=== PATIENT | female | born 1995 | race African-American/Black ===

== ENCOUNTER 2016-09-19 01:28 | Emergency (ER) | payer MEDICAID ==
[~2016-09-19] VITALS: Ht 160 cm; Wt 75.0 kg
[~2016-09-19 01:28] MED LIST: ALBU1AER INH; IBUP600 PO; OXYC1SOL5 PO; PERI8.6T PO; PREN0.01 PO
[2016-09-19 01:31] VITALS: BP 130/78; PULSE 77; RESP 16; TEMP 98; O2SAT 99
[2016-09-19] MEDS ORDERED: SODIUM CHLOR 0.9% 1000 ML INJ 1,000 ML IV ONE (01:54)
[2016-09-19] MEDS ORDERED: KETOROLAC TROMETHAMINE 30 MG/ML (IVP) VIAL IV PUSH ONE (02:00)
--- NOTE | 2016-09-19 02:19 | PD ---
HPI Chief Complaint: Abdominal Pain Time Seen by Provider: 01:52 Travel History International Travel<30 days: No Contact w/Intl Traveler<30days: No Traveled to known affect area: No History of Present Illness HPI The patient is a 21 year old female who presents to the [facility] emergency department with a history of vaginal discharge and vaginal pain that she reports began 2 weeks ago. She reports that the vaginal discharge is white to yellow in color. She reports that it has a bad odor. She reports that she occasionally has had vaginal itching. She denies having any open wounds. She denies having any new sexual partners or concerns about sexually transmitted infections. She reports that her last mental cycle was September 10, 2016. The patient denies any recent fevers, cough, congestion, neck pain, chest pain, shortness of breath, abdominal pain, vomiting, diarrhea, urinary symptoms, or neurologic symptoms. PFSH Past Medical History Narrative Medical The patient's past medical history is significant for asthma. Asthma: Yes Diminished Hearing: No Respiratory: Yes (ASTHMA) Immunizations Current: Yes Tetanus Vaccination: > 5 Years Influenza Vaccination: No ?: Not LMP: 1-17 Menopausal: No : 2 Para: 2 Miscarriage: 0 : 0 Past Surgical History Narrative Surgical The patient's past surgical history is reportedly none. Surgical History: No Previous Surgery Section: Yes (2) Gynecologic Surgery: Yes (C SECTION) Social History Alcohol Use: No Tobacco Use: No Substance Use: No Allergies-Medications (Allergen,Severity, Reaction): Coded Allergies: No Known Allergies (Verified , 09/19/16) Reported Meds & Prescriptions Reported Meds & Active Scripts Active Kaley-Colace 8.6-50 mg (Sennosides-Docusate Sodium) 1 Tab Tab 2 Tab PO Q12HR PRN Oxycodone/Acetaminophen 5 mg/325 mg 5 mg/325 mg Tab 1 Tab PO Q4H PRN Motrin 600 Mg Tab (Ibuprofen) 600 Mg Tab 600 Mg PO Q6H PRN Proair Hfa (Albuterol Sulfate) 8.5 Gm Aero 2 Puff INH Q4HR PRN * SHAKE WELL BEFORE USE * Reported Vit ( Plus) (Prenat Multivit/Grill Attendant/Iron/Folic Ac) Tab 1 Tab PO DAILY Review of Systems Except as stated in HPI: all other systems reviewed are Neg General / Constitutional: No: Fever Eyes: No: Visual changes HENT: No: Headaches Cardiovascular: No: Chest Pain or Discomfort Respiratory: No: Shortness of Breath Gastrointestinal: No: Abdominal Pain Genitourinary: Positive: Pelvic Pain, Discharge, No: Urgency, Frequency, Dysuria, Vaginal Bleeding Musculoskeletal: No: Pain Skin: No Rash Neurologic: No: Weakness Psychiatric: No: Depression Endocrine: No: Polydipsia Hematologic/Lymphatic: No: Easy Bruising Physical Exam Narrative General: The patient is a well-developed well-nourished female in no acute distress. Head and Neck exam: Head is normocephalic atraumatic. Eyes: Pupils are equal round and reactive to light. Nose: Midline septum with pink mucous membranes Mouth: Dentition unremarkable. Moist mucus membranes. Posterior oropharynx is not erythematous. No tonsillar hypertrophy. Uvula midline. Airway patent. Neck: No palpable lymphadenopathy. No nuchal rigidity. No thyromegaly. Cardiovascular: Regular rate and rhythm without murmurs, gallops, or rubs. No pulse deficit to the extremities. Lungs: Clear to auscultation bilaterally. No wheezes, rhonchi, or rales. Abdomen: Soft, with tenderness on palpation in the left lower quadrant of the abdomen. No other tenderness on palpation of the other 3 quadrants. The patient has mild suprapubic tenderness on palpation. No guarding, rebound, or rigidity. Normal bowel sounds are audible. No tenderness on palpation of McBurney's point. Extremities: No clubbing, cyanosis, or edema. 2+ pulses in all 4 extremities. Back: No spinous process tenderness to palpation. Left-sided CVA tenderness on palpation. Neurologic Exam: Grossly nonfocal. Skin Exam: No rash noted. Intact skin that is warm and dry. Gynecologic exam: The patient was placed in the dorsal lithotomy position. Her external genitalia were examined. She had no evidence of rash or lesions. The speculum was placed into her vagina and the cervix was identified. She had a thin white to yellow frothy discharge. No cervical friability. On Bimanual exam: she has cervical motion tenderness. She has bladder tenderness on palpation on bimanual examination. No adnexal tenderness or prominence noted on palpation. No uterine tenderness or enlargement noted on palpation. Data Data Last Documented VS Vital Signs Date Time Temp Pulse Resp B/P Pulse Ox O2 Delivery O2 Flow Rate FiO2 09/19/16 01:45 20 09/19/16 01:31 98.0 77 130/78 99 Orders Complete Blood Count With Diff (09/19/16 01:54) Comprehensive Metabolic Panel (09/19/16 01:54) Wet Prep Profile (09/19/16 01:54) Urinalysis - C+S If Indicated (09/19/16 01:54) Iv Access Insert/Monitor (09/19/16 01:54) Ecg Monitoring (09/19/16 01:54) Sodium Chlor 0.9% 1000 Ml Inj (Ns 1000 M (09/19/16 01:54) Ed Urine Pregnancytest Poc (09/19/16 01:54) Ketorolac Inj (Toradol Inj) (09/19/16 02:00) Ceftriaxone Inj (Rocephin Inj) (09/19/16 03:45) Azithromycin Powd Pack (Zithromax Powd P (09/19/16 03:45) Gc And Chlamydia Pcr (09/19/16 04:05) Labs Laboratory Tests Test 09/19/16 09/19/16 02:15 03:15 White Blood Count 10.5 TH/MM3 Red Blood Count 4.32 MIL/MM3 Hemoglobin 10.9 GM/DL Hematocrit 33.3 % Mean Corpuscular Volume 77.0 FL Mean Corpuscular Hemoglobin 25.2 PG Mean Corpuscular Hemoglobin 32.7 % Concent Red Cell Distribution Width 14.6 % Platelet Count 203 TH/MM3 Mean Platelet Volume 10.6 FL Neutrophils (%) (Auto) 61.7 % Lymphocytes (%) (Auto) 27.7 % Monocytes (%) (Auto) 7.9 % Eosinophils (%) (Auto) 2.0 % Basophils (%) (Auto) 0.7 % Neutrophils # (Auto) 6.4 TH/MM3 Lymphocytes # (Auto) 2.9 TH/MM3 Monocytes # (Auto) 0.8 TH/MM3 Eosinophils # (Auto) 0.2 TH/MM3 Basophils # (Auto) 0.1 TH/MM3 CBC Comment DIFF FINAL Differential Comment Urine Color YELLOW Urine Turbidity HAZY Urine pH 6.0 Urine Specific [place] 1.033 Urine Protein TRACE mg/dL Urine Glucose (UA) NEG mg/dL Urine Ketones NEG mg/dL Urine Occult Blood NEG Urine Nitrite NEG Urine Bilirubin NEG Urine Urobilinogen LESS THAN 2.0 MG/DL Urine Leukocyte Esterase SMALL Urine RBC LESS THAN 1 /hpf Urine WBC 1 /hpf Urine Squamous Epithelial 5 /hpf Cells Urine Mucus FEW /lpf Microscopic Urinalysis Comment CULT NOT INDICATED Sodium Level 139 MEQ/L Potassium Level 4.2 MEQ/L Chloride Level 106 MEQ/L Carbon Dioxide Level 26.0 MEQ/L Anion Gap 7 MEQ/L Blood Urea Nitrogen 19 MG/DL Creatinine 0.61 MG/DL Estimat Glomerular Filtration 148 ML/MIN Rate Random Glucose 93 MG/DL Calcium Level 8.8 MG/DL Total Bilirubin 0.2 MG/DL Aspartate Amino Transf 16 U/L (AST/SGOT) Alanine Aminotransferase 18 U/L (ALT/SGPT) Alkaline Phosphatase 89 U/L Total Protein 7.7 GM/DL Albumin 3.8 GM/DL Clue Cells (Wet Prep) PRESENT Vaginal Trichomonas (Wet Prep) NONE SEEN Vaginal Yeast (Wet Prep) NONE SEEN MDM Medical Decision Making Medical Screen Exam Complete: Yes Emergency Medical Condition: Yes Medical Record Reviewed: Yes Differential Diagnosis Bacterial vaginosis, versus cervicitis, versus yeast vaginitis, versus trichomoniasis, urinary tract infection Narrative Course During the course of the patients emergency department visit, the patients history, examination, and differential diagnosis were reviewed with the patient. The patient had IV access obtained and blood work sent for analysis. A pelvic examination will be done. A bedside test was negative. The patient was provided Toradol for pain, Zofran for nausea, normal saline IV fluids were administered. The patients laboratory studies were reviewed and remarkable for a white count of 10.5, hemoglobin 10.9, platelets 203 with a normal differential, CMP is remarkable for BUN of 19, urinalysis shows small leukocyte esterase, otherwise unremarkable, culture not indicated, wet prep is positive for clue cells. The patient's results were discussed with her. The patient was given Rocephin 1 g IV, azithromycin 1 g by mouth 1. The patient will be discharged home with a prescription for Flagyl. The patient is resting comfortably and feels better, is alert and in no distress. The patients results and examination findings were discussed with the patient. The repeat examination is unremarkable and benign. The history, exam, diagnostic testing, and current condition do not suggest any significant pathology to warrant further testing, continued ED treatment, admission, or surgical evaluation at this point. The vital signs have been stable. The patient does not have uncontrollable pain, intractable vomiting, or other significant symptoms. The patient's condition is stable and appropriate for discharge. The patient will pursue further outpatient evaluation with a primary care physician or other designated or consulting physician as indicated in the discharge instructions. The patient expressed understanding and was agreeable with this plan. Diagnosis Primary Impression: Cervicitis Additional Impression: Bacterial vaginosis Referrals: Prefabricated Houses Trimmer Patient Instructions: Bacterial Vaginosis (ED), Cervicitis (ED), General Instructions Med/Other Pt SpecificInfo: Prescription(s) given Scripts Metronidazole (Flagyl)500 Mg [id number] Mg PO BID 7 Days Ref 0 Prov:Nolvia Duke MD 09/19/16 Disposition: 01 DISCHARGE HOME Condition: Stable Nolvia Duke MD Sep 19, 2016 02:19
[2016-09-19 02:31] LABS: BLOOD, URINE NEG (NEG); COMMENT (UR) CULT NOT INDICATED; GLUCOSE,URINE NEG (NEG); KETONE, URINE NEG (NEG); MUCUS URINE FEW /lpf (OCC); NITRITE,URINE NEG (NEG); SQUAMOUS EPITHELIAL CELL URINE 5 /hpf (0-5); URINE COLOR YELLOW (YELLW/STRAW)
[2016-09-19 02:32] LABS: AUTOMATED NEUTROPHIL # 6.4 TH/MM3 (1.8-7.7); BASOPHIL # 0.1 TH/MM3 (0-0.2); BASOPHIL % 0.7 % (0.0-2.0); CULTURE IF INDICATED CULT NOT INDICATED; EOSINOPHIL # 0.2 TH/MM3 (0-0.4); HEMATOCRIT 33.3 % (35.0-46.0); HEMO FLAGS DIFF FINAL; LYMPH % 27.7 % (9.0-44.0); LYMPHOCYTE # 2.9 TH/MM3 (1.0-4.8); MEAN CORPUSCULAR HEMOGLOBIN 25.2 PG (27.0-34.0); MEAN CORPUSCULAR HGB CONC 32.7 % (32.0-36.0); MONO % 7.9 % (0.0-8.0); NEUT % 61.7 % (16.0-70.0); PLATELET COUNT 203 TH/MM3 (150-450); RED BLOOD COUNT 4.32 MIL/MM3 (4.00-5.30); RED CELL DISTRIBUTION WIDTH 14.6 % (11.6-17.2); WHITE BLOOD COUNT 10.5 TH/MM3 (4.0-11.0)
[2016-09-19 02:52] LABS: ALKALINE PHOSPHATASE 89 U/L (45-117); TOTAL BILIRUBIN ADULT 0.2 MG/DL (0.2-1.0)
[2016-09-19 02:57] LABS: ALT (GPT) 18 U/L (10-53); ANION GAP 7 MEQ/L (5-15); AST (GOT) 16 U/L (15-37); BLOOD UREA NITROGEN 19 MG/DL (7-18); CHLORIDE 106 MEQ/L (98-107); GLOMERULAR FILTRATION RATE 148 ML/MIN (>89); SODIUM (NA) 139 MEQ/L (136-145)
[2016-09-19 02:59] LABS: POTASSIUM 4.2 MEQ/L (3.5-5.1)
[2016-09-19 03:30] VITALS: RESP 16
[2016-09-19] MEDS ORDERED: cefTRIAXone INJ 1,000 MG in SODIUM CHLORIDE 0.9% INJ 100 ML IV ONE (03:45)
[2016-09-19] MEDS ORDERED: AZITHROMYCIN PWD FOR SUSP 1 GM PACKET PO ONE (03:45)
[2016-09-19] MEDS ORDERED: METR-1 PO (04:17)
[2016-09-19 05:49] LABS: CHLAMYDIA PCR NOT DETECTED (NOT DETECT); NEISSERIA PCR NOT DETECTED (NOT DETECT)
== END 2016-09-19 04:50 | disposition home or self-care (01) ==
LOC: NEPC 01:28
DX: N72 Inflammatory disease of cervix uteri (principal); N76.0 Acute vaginitis; J45.909 Unspecified asthma, uncomplicated
CPT/HCPCS: 80053; 81001; 84703; 85025; 87210; 87491; 87591; 96361; 96365; 96375; 99283; J0696; J1885; J7030

== ENCOUNTER 2016-10-28 22:33 | Emergency (ER) | payer MEDICAID ==
[~2016-10-28] VITALS: Ht 160 cm; Wt 91.0 kg
[~2016-10-28 22:33] MED LIST changes: +METR-1 PO
[2016-10-28 22:34] VITALS: BP 135/72; PULSE 79; RESP 16; TEMP 98.2; O2SAT 99
[2016-10-28] MEDS ORDERED: ALBU0.08 NEB (22:48)
[2016-10-28] MEDS ORDERED: ALBUAER3 INH (22:48)
[2016-10-29] MEDS ORDERED: cefTRIAXone 250 MG VIAL IM ONE
[2016-10-29] MEDS ORDERED: AZITHROMYCIN PWD FOR SUSP 1 GM PACKET PO ONE
[2016-10-29] MEDS ORDERED: LIDOCAINE HCL 1% 50 ML VIAL IM ONE
[2016-10-29] MEDS ORDERED: METR-1 PO (00:05)
--- NOTE | 2016-10-29 00:05 | PD ---
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 Patient states that she started having vaginal discharge yesterday and pelvic pain today. Patient states the pain cramping pain intermittent pain localized to the suprapubic pelvic area. Patient denies any pain radiation. Patient denies any dysuria or frequency. Patient denies any vaginal bleeding. Patient was treated for cervicitis a month ago. Patient was given Rocephin IM, Zithromax by mouth and prescription for Flagyl. Wet prep was positive for clue cell at that time. Patient states that the partner was not treated. Patient denies any other medical problem. PFSH Past Medical History Asthma: Yes Diminished Hearing: No Respiratory: Yes (ASTHMA) Immunizations Current: Yes Influenza Vaccination: No ?: Not LMP: 09/25/16 Menopausal: No : 2 Para: 2 Miscarriage: 0 : 0 Past Surgical History Section: Yes (2) Gynecologic Surgery: Yes (C SECTION) Social History Alcohol Use: No Tobacco Use: No Substance Use: No Allergies-Medications (Allergen,Severity, Reaction): Coded Allergies: No Known Allergies (Verified , 10/28/16) Reported Meds & Prescriptions Reported Meds & Active Scripts Active Reported Proair Hfa 8.5 GM Inh (Albuterol Sulfate) 90 Mcg/Act Aer 2 Puff INH Q4-6H PRN 108 mcg/actuation Albuterol Neb (Albuterol Sulfate) 2.5 Mg/3 Ml Neb 2.5 Mg NEB Q4HR NEB While awake Review of Systems General / Constitutional: No: Fever Eyes: No: Visual changes HENT: No: Headaches Cardiovascular: No: Chest Pain or Discomfort Respiratory: No: Shortness of Breath Gastrointestinal: No: Abdominal Pain Genitourinary: Positive: Pelvic Pain, Discharge, No: Dysuria Musculoskeletal: No: Pain Skin: No Rash Neurologic: No: Weakness Psychiatric: No: Depression Endocrine: No: Polydipsia Hematologic/Lymphatic: No: Easy Bruising Physical Exam Narrative GENERAL: Well-nourished, well-developed patient. SKIN: Warm and dry. HEAD: Normocephalic. EYES: No scleral icterus. No injection or drainage. NECK: Supple, trachea midline. No JVD or lymphadenopathy. CARDIOVASCULAR: Regular rate and rhythm without murmurs, gallops, or rubs. RESPIRATORY: Breath sounds equal bilaterally. No accessory muscle use. GASTROINTESTINAL: Abdomen soft, non-tender, nondistended. MUSCULOSKELETAL: No cyanosis, or edema. BACK: Nontender without obvious deformity. No CVA tenderness. SECURITY SHIFT SUPERVISOR exam: Patient has a small amount of the whitish greenish discharge in the vaginal vault. No cervical motion tenderness. Uterus is nonenlarged with moderate tenderness on palpation. No adnexal mass or tenderness. Data Data Last Documented VS Vital Signs Date Time Temp Pulse Resp B/P Pulse Ox O2 Delivery O2 Flow Rate FiO2 10/28/16 22:34 98.2 79 16 135/72 99 Room Air MDM Medical Decision Making Medical Screen Exam Complete: Yes Emergency Medical Condition: Yes Differential Diagnosis Differential diagnosis including bacterial vaginosis, cervicitis, PID, threatened AB, ectopic . Narrative Course 21-year-old female with vaginal discharge and pelvic pain. Examination consistent with cervicitis. Rocephin 250 mg IM. Zithromax 1 g by mouth. Diagnosis Primary Impression: Cervicitis Patient Instructions: General Instructions Additional Instructions: Flagyl as directed. Follow-up with personal physician. Return if worse. Tylenol Advil for pain. Med/Other Pt SpecificInfo: Prescription(s) given Scripts Metronidazole (Flagyl)500 Mg [id number] Mg PO BID #14 TAB Ref 0 Prov:Mookie Armenta MD 10/29/16 Disposition: DISCHARGE HOME Condition: Stable Mookie Armenta MD Oct 29, 2016 00:05
[2016-10-29 00:12] VITALS: BP 132/67
[2016-10-29 02:56] LABS: CHLAMYDIA PCR NOT DETECTED (NOT DETECT); NEISSERIA PCR NOT DETECTED (NOT DETECT)
== END 2016-10-29 00:41 | disposition home or self-care (01) ==
LOC: NEPE 22:33
DX: N72 Inflammatory disease of cervix uteri (principal); R10.2 Pelvic and perineal pain; Z87.09 Personal history of other diseases of the respiratory system
CPT/HCPCS: 84703; 87210; 87491; 87591; 96372; 99284; J0696

== ENCOUNTER 2016-11-22 13:02 | Emergency (ER) | payer MEDICAID ==
[~2016-11-22] VITALS: Ht 160 cm; Wt 90.0 kg
[~2016-11-22 13:02] MED LIST changes: +ALBU0.08 NEB; -ALBU1AER INH; +ALBUAER3 INH; -IBUP600 PO; -OXYC1SOL5 PO; -PERI8.6T PO; -PREN0.01 PO
[2016-11-22 13:04] VITALS: BP 155/104; PULSE 96; RESP 16; TEMP 98.2; O2SAT 98
[2016-11-22] MEDS ORDERED: DEPO400I IM (13:39)
--- NOTE | 2016-11-22 13:47 | PD ---
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 Patient states she has a different odor when she typically has non-. Patient recently started Depo -Provera injections for control. She was treated in September and October of this year for cervicitis. States she is in a monogamous relationship. Denies chance of . PFSH Past Medical History Asthma: Yes Diminished Hearing: No Respiratory: Yes Immunizations Current: Yes Tetanus Vaccination: < 5 Years ?: Not Menopausal: No : 2 Para: 2 Miscarriage: 0 : 0 Past Surgical History Section: Yes (2) Gynecologic Surgery: Yes (C SECTION) Social History Alcohol Use: No Tobacco Use: No Substance Use: No Allergies-Medications (Allergen,Severity, Reaction): Coded Allergies: No Known Allergies (Verified , 11/22/16) Reported Meds & Prescriptions Reported Meds & Active Scripts Active Keflex (Cephalexin) 500 Mg Cap 500 Mg PO Q12H 7 Days Diflucan (Fluconazole) 150 Mg Tab 150 Mg PO ONCE Take as directed in three days if symptoms persist Reported Depo-Provera Inj (Medroxyprogesterone Inj) 400 Mg/Ml Inj 400 Mg IM ONCE Proair Hfa 8.5 GM Inh (Albuterol Sulfate) 90 Mcg/Act Aer 2 Puff INH Q4-6H PRN 108 mcg/actuation Albuterol Neb (Albuterol Sulfate) 2.5 Mg/3 Ml Neb 2.5 Mg NEB Q4HR NEB While awake Review of Systems Except as stated in HPI: all other systems reviewed are Neg Physical Exam Narrative GENERAL: Well-nourished female patient, in no acute distress SKIN: Warm and dry. HEAD: Atraumatic. Normocephalic. EYES: Pupils equal and round. No scleral icterus. No injection or drainage. ENT: No nasal bleeding or discharge. Mucous membranes pink and moist. NECK: Trachea midline. No JVD. CARDIOVASCULAR: Regular rate and rhythm. No murmur appreciated. RESPIRATORY: No accessory muscle use. Clear to auscultation. Breath sounds equal bilaterally. GASTROINTESTINAL: Abdomen soft, non-tender, nondistended. Hepatic and splenic margins not palpable. GENITOURINARY: Normal external genitalia without lesions. There is erythema in the labial folds with a thick white chunky discharge. Vaginal vault without blood, however there is a thick white chunky discharge within the vaginal vault.. Cervical os was closed without drainage. No cervical motion tenderness. Uterus nontender and nonenlarged. Bilateral adnexa nontender without masses. MUSCULOSKELETAL: No obvious deformities. No clubbing. No cyanosis. No edema. NEUROLOGICAL: Awake and alert. No obvious cranial nerve deficits. Motor grossly within normal limits. Normal speech. PSYCHIATRIC: Appropriate mood and affect; insight and judgment normal. Data Data Last Documented VS Vital Signs Date Time Temp Pulse Resp B/P Pulse Ox O2 Delivery O2 Flow Rate FiO2 11/22/16 14:59 71 16 132/89 99 11/22/16 13:04 98.2 Room Air Orders Urinalysis - C+S If Indicated (11/22/16 13:45) Gc And Chlamydia Pcr (11/22/16 13:45) Wet Prep Profile (11/22/16 13:45) Fluconazole (Diflucan) (11/22/16 14:00) Ed Urine Pregnancytest Poc (11/22/16 14:16) Labs Laboratory Tests Test 11/22/16 13:50 Urine Color YELLOW Urine Turbidity HAZY Urine pH 6.0 Urine Specific [place] 1.031 Urine Protein TRACE mg/dL Urine Glucose (UA) NEG mg/dL Urine Ketones NEG mg/dL Urine Occult Blood MOD Urine Nitrite NEG Urine Bilirubin NEG Urine Urobilinogen LESS THAN 2.0 MG/DL Urine Leukocyte Esterase LARGE Urine RBC 9 /hpf Urine WBC 6 /hpf Urine Squamous Epithelial 6 /hpf Cells Urine Bacteria RARE /hpf Urine Hyaline Casts 1 /lpf Urine Mucus FEW /lpf Microscopic Urinalysis Comment CULT NOT INDICATED Clue Cells (Wet Prep) NONE SEEN Vaginal Trichomonas (Wet Prep) NONE SEEN Vaginal Yeast (Wet Prep) NONE SEEN Chlamydia trachomatis DNA NOT DETECTED (PCR) Neisseria gonorrhoeae DNA NOT DETECTED (PCR) MDM Medical Decision Making Medical Screen Exam Complete: Yes Emergency Medical Condition: Yes Medical Record Reviewed: Yes Differential Diagnosis Foldable vaginal candidiasis versus UTI versus STD Narrative Course 21-year-old female presents to the emergency department for evaluation of vaginal itching and burning with a thick white discharge. Physical exam is consistent with a diagnosis. Wet prep is negative. GC PCR is negative. Urinalysis is hazy with moderate blood, large leukocyte esterase, 9 RBC, 6 WBC, rare bacteria, few mucus. Cultures not indicated. Patient will be treated with Diflucan. She is also encouraged to utilize [id number] Monistat vaginal suppositories. She is encouraged to follow-up with primary care provider. She agrees to return immediately if any acute worsening symptoms. Diagnosis Primary Impression: Vulvovaginal candidiasis Additional Impression: UTI (urinary tract infection) Qualified Code: N39.0 - Urinary tract infection with hematuria, site unspecified Referrals: [facility] Outside Sales Manager Primary Care Physician Patient Instructions: General Instructions, Vulvovaginal Candidiasis (ED) Additional Instructions: Seek gynecology evaluation Over the counter monistat as directed on the package Return immediately with any acute worsening of symptoms Med/Other Pt SpecificInfo: Prescription(s) given Scripts Cephalexin (Keflex)500 Mg [id number] Mg PO Q12H 7 Days Ref 0 Prov:Becca Clemens 11/22/16 Fluconazole (Diflucan)150 Mg [id number] Mg PO ONCE #1 TAB Ref 0 Take as directed in three days if symptoms persist Prov:Becca Clemens 11/22/16 Disposition: 01 DISCHARGE HOME Condition: Stable Becca Clemens Nov 22, 2016 13:47
[2016-11-22] MEDS ORDERED: FLUCONAZOLE 100 MG TAB PO ONE (14:00)
[2016-11-22] MEDS ORDERED: DIFL150T PO (14:02)
[2016-11-22 14:42] LABS: BACTERIA, URINE RARE /hpf; BLOOD, URINE MOD (NEG); GLUCOSE,URINE NEG (NEG); HYALINE CAST, URINE 1 /lpf (RARE); KETONE, URINE NEG (NEG); MUCUS URINE FEW /lpf (OCC); NITRITE,URINE NEG (NEG); SQUAMOUS EPITHELIAL CELL URINE 6 /hpf (0-5); URINE COLOR YELLOW (YELLW/STRAW)
[2016-11-22 14:44] LABS: COMMENT (UR) CULT NOT INDICATED; CULTURE IF INDICATED CULT NOT INDICATED
[2016-11-22] MEDS ORDERED: CEPH-460 PO (14:49)
[2016-11-22 14:59] VITALS: BP 132/89
[2016-11-22 18:36] LABS: CHLAMYDIA PCR NOT DETECTED (NOT DETECT); NEISSERIA PCR NOT DETECTED (NOT DETECT)
== END 2016-11-22 15:03 | disposition home or self-care (01) ==
LOC: NEPA 13:02
DX: B37.3 Candidiasis of vulva and vagina (principal); N39.0 Urinary tract infection, site not specified; J45.909 Unspecified asthma, uncomplicated
CPT/HCPCS: 81001; 84703; 87210; 87491; 87591; 99283

== ENCOUNTER 2017-05-07 21:13 | Emergency (ER) | payer SELFPAY ==
[~2017-05-07] VITALS: Ht 160 cm; Wt 81.8 kg
[~2017-05-07 21:13] MED LIST changes: +CEPH-460 PO; +DEPO400I IM; +DIFL150T PO; -METR-1 PO
[2017-05-07 21:14] VITALS: BP 134/70; PULSE 95; TEMP 98; O2SAT 99
[2017-05-07] MEDS ORDERED: KETOROLAC TROMETHAMINE 60 MG/2 ML (IM) VIAL IM ONE (22:45)
[2017-05-07] MEDS ORDERED: NAPR500T PO (23:08)
--- NOTE | 2017-05-07 23:08 | PD ---
HPI Chief Complaint: Abdominal Pain Time Seen by Provider: 21:45 Travel History International Travel<30 days: No Contact w/Intl Traveler<30days: No Traveled to known affect area: No History of Present Illness HPI This is a 22-year-old female who presents to the emergency department with lower abdominal cramping that's been going on for 3 days, moderate severity, nonradiating, associated with some vaginal bleeding that started today. She only had her last menstrual cycle 2 weeks ago. She denies any fevers or chills and denies any abnormal discharge. She's had no vomiting. She was a little constipated today and had to strain when she had a bowel movement. She is sexually active with one partner in the past 6 months. She denies any dysuria or hematuria. PFSH Past Medical History Asthma: Yes Diminished Hearing: No Respiratory: Yes Immunizations Current: Yes Influenza Vaccination: No ?: Unknown LMP: 04/09/2017 Menopausal: No : 2 Para: 2 Miscarriage: 0 : 0 Past Surgical History Section: Yes (2) Gynecologic Surgery: Yes (C SECTION) Social History Alcohol Use: No Tobacco Use: Yes Substance Use: No Allergies-Medications (Allergen,Severity, Reaction): Coded Allergies: No Known Allergies (Verified , 05/07/17) Reported Meds & Prescriptions Reported Meds & Active Scripts Active Naproxen 500 Mg Tab 500 Mg PO BID PRN Reported Proair Hfa 8.5 GM Inh (Albuterol Sulfate) 90 Mcg/Act Aer 2 Puff INH Q4-6H PRN 108 mcg/actuation Albuterol Neb (Albuterol Sulfate) 2.5 Mg/3 Ml Neb 2.5 Mg NEB Q4HR NEB While awake Review of Systems Except as stated in HPI: all other systems reviewed are Neg Physical Exam Narrative GENERAL:Well appearing, no acute distress SKIN: Focused skin assessment warm and dry. HEAD: Atraumatic. Normocephalic. EYES: Pupils equal and round. No injection or drainage. ENT: Moist mucous membranes NECK: Trachea midline. CARDIOVASCULAR: Regular rate and rhythm. No murmur appreciated. RESPIRATORY: Clear to auscultation. Breath sounds equal bilaterally. GASTROINTESTINAL: Abdomen soft, tender to palpation in the suprapubic region with no rebound or guarding. BIOLOGICAL SCIENTIST: Dark blood in the vault with no cervical motion or adnexal tenderness. No discharge. MUSCULOSKELETAL: No obvious deformities. NEUROLOGICAL: Awake and alert. No obvious cranial nerve deficits. Moving all extremities. PSYCHIATRIC: Appropriate mood and affect; insight and judgment normal. Data Data Last Documented VS Vital Signs Date Time Temp Pulse Resp B/P (MAP) Pulse Ox O2 Delivery O2 Flow Rate FiO2 05/07/17 21:14 98.0 95 134/70 (91) 99 Orders Orders Urinalysis - C+S If Indicated (05/07/17 22:11) Ed Urine Pregnancytest Poc (05/07/17 22:11) Wet Prep Profile (05/07/17 22:11) Gc And Chlamydia Pcr (05/07/17 22:11) Ketorolac Inj (Toradol Inj) (05/07/17 22:45) Labs Laboratory Tests Test 05/07/17 22:33 05/07/17 23:00 Clue Cells (Wet Prep) NONE SEEN Vaginal Trichomonas (Wet Prep) NONE SEEN Vaginal Yeast (Wet Prep) NONE SEEN Urine Color YELLOW Urine Turbidity CLEAR Urine pH 6.5 Urine Specific [place] 1.031 Urine Protein NEG mg/dL Urine Glucose (UA) NEG mg/dL Urine Ketones NEG mg/dL Urine Occult Blood SMALL Urine Nitrite NEG Urine Bilirubin NEG Urine Urobilinogen LESS THAN 2.0 MG/DL Urine Leukocyte Esterase TRACE Urine RBC 1 /hpf Urine WBC 2 /hpf Urine Squamous Epithelial Cells <1 /hpf Urine Bacteria RARE /hpf Urine Mucus FEW /lpf Microscopic Urinalysis Comment CULT NOT INDICATED MDM Medical Decision Making Medical Screen Exam Complete: Yes Emergency Medical Condition: Yes Interpretation(s) Wet prep is negative Differential Diagnosis Pelvic inflammatory disease, dysmenorrhea, , urinary tract infection Narrative Course This is a 22-year-old female who presents to the emergency department with lower abdominal and pelvic pain. Her abdominal exam is benign. She has blood in the vault on exam. She is not . Wet prep is negative. Urinalysis is negative for infection. I suspect the patient is suffering from dysmenorrhea. Patient will be discharged and anti-inflammatories. Diagnosis Primary Impression: Dysmenorrhea Patient Instructions: General Instructions Additional Instructions: If you develop fever, chills, severe abdominal pain, persistent vomiting or inability to eat return to the emergency department. Your pelvic exam today did not include a Pap smear. It is important to followup with a business segment manager on a yearly basis to be tested for cervical cancer as we do not do that from the emergency department. I Med/Other Pt SpecificInfo: Prescription(s) given Scripts Naproxen (Naproxen) 500 Mg Tab 500 MG PO BID Y for PAIN SCALE 4 TO 10, #20 TAB 0 Refills Prov: Bianca Nickerson MD 05/07/17 Disposition: 01 DISCHARGE HOME Condition: Stable Bianca Nickerson MD May 07, 2017 23:08
[2017-05-07 23:43] LABS: BACTERIA, URINE RARE /hpf; BLOOD, URINE SMALL (NEG); COMMENT (UR) CULT NOT INDICATED; CULTURE IF INDICATED CULT NOT INDICATED; GLUCOSE,URINE NEG (NEG); KETONE, URINE NEG (NEG); MUCUS URINE FEW /lpf (OCC); NITRITE,URINE NEG (NEG); PH, URINE 6.5 (5.0-8.5); SQUAMOUS EPITHELIAL CELL URINE <1 /hpf (0-5); URINE COLOR YELLOW (YELLW/STRAW)
[2017-05-08 02:23] LABS: CHLAMYDIA PCR NOT DETECTED (NOT DETECT); NEISSERIA PCR NOT DETECTED (NOT DETECT)
== END 2017-05-08 00:37 | disposition home or self-care (01) ==
LOC: NEPD 21:13
DX: N94.6 Dysmenorrhea, unspecified (principal)
CPT/HCPCS: 81001; 84703; 87210; 87491; 87591; 96372; 99284; J1885

== ENCOUNTER 2017-05-08 14:09 | Emergency (ER) | payer SELFPAY ==
[~2017-05-08] VITALS: Ht 160 cm; Wt 82.0 kg
[~2017-05-08 14:09] MED LIST changes: -CEPH-460 PO; -DEPO400I IM; -DIFL150T PO; +NAPR500T PO
[2017-05-08] MEDS ORDERED: IOHEXOL 350 MG/ML 10 ML VIAL (for RAD DIAG) IVCONTRAST ONE (14:10)
[2017-05-08 14:11] VITALS: BP 134/86; PULSE 94; RESP 15; TEMP 98.2; O2SAT 98
[2017-05-08] MEDS ORDERED: SODIUM CHLOR 0.9% 1000 ML INJ 1,000 ML IV SCH (14:40)
[2017-05-08] MEDS ORDERED: SODIUM CHLORIDE 0.9% FLUSH 10 ML FLUSH IV FLUSH PRN (14:45)
[2017-05-08] MEDS ORDERED: KETOROLAC TROMETHAMINE 30 MG/ML (IVP) VIAL IV PUSH ONE (14:45)
--- NOTE | 2017-05-08 14:45 | PD ---
HPI Chief Complaint: Medical Clearance Time Seen by Provider: 14:35 Travel History International Travel<30 days: No Contact w/Intl Traveler<30days: No History of Present Illness HPI This patient was examined in the presence of a female nurse at all times. 22- year-old female with no significant past medical history presents for evaluation. For the past 4 days she has been suffering from lower abdominal pain which she describes as a constant cramping sensation. She reports over the past few days she's been having paresthesias and cramping sensation in her hands and her legs as well as some sharp intermittent pains in her chest. There are no obvious aggravating or alleviating factors. She denies shortness of breath, ingestion, flank pain, dysuria, vaginal bleeding or discharge, diarrhea or constipation. The patient was seen here yesterday complaining of lower abdominal cramping and it appears that she underwent a pelvic examination , urinalysis, wet prep and chlamydia gonorrhea probe were negative. According to her notes there was some blood in her vaginal canal and she was felt to have dysmenorrhea as the cause of her lower abdominal cramping. She reports that she has not noticed any menstrual bleeding but she does report that her last menstrual period was April 09. She has no other complaints at this time. PFSH Past Medical History Asthma: Yes Diminished Hearing: No Respiratory: Yes Immunizations Current: Yes ?: Not LMP: 04/09/17 Menopausal: No : 2 Para: 2 Miscarriage: 0 : 0 Past Surgical History Section: Yes (2) Gynecologic Surgery: Yes (C SECTION) Social History Alcohol Use: No Tobacco Use: No Substance Use: No Allergies-Medications (Allergen,Severity, Reaction): Coded Allergies: No Known Allergies (Verified , 05/08/17) Reported Meds & Prescriptions Reported Meds & Active Scripts Active Naproxen 500 Mg Tab 500 Mg PO BID PRN Reported Proair Hfa 8.5 GM Inh (Albuterol Sulfate) 90 Mcg/Act Aer 2 Puff INH Q4-6H PRN 108 mcg/actuation Albuterol Neb (Albuterol Sulfate) 2.5 Mg/3 Ml Neb 2.5 Mg NEB Q4HR NEB While awake Review of Systems Except as stated in HPI: all other systems reviewed are Neg Physical Exam Narrative GENERAL: Well-nourished female in no acute distress SKIN: Warm and dry. HEAD: Atraumatic. Normocephalic. EYES: Pupils equal and round. No scleral icterus. No injection or drainage. ENT: No nasal bleeding or discharge. Mucous membranes pink and moist. NECK: Trachea midline. No JVD. CARDIOVASCULAR: Regular rate and rhythm. No murmur appreciated. RESPIRATORY: No accessory muscle use. Clear to auscultation. Breath sounds equal bilaterally. GASTROINTESTINAL: Abdomen soft, generalized tenderness to palpation to the lower abdomen without guarding. MUSCULOSKELETAL: No obvious deformities. There is no lower extremity edema. There were no obvious muscle spasms. Distal pulses are intact in the upper and lower extremities. The patient maintains a normal gait. NEUROLOGICAL: Awake and alert. No obvious cranial nerve deficits. Motor grossly within normal limits. Normal speech. PSYCHIATRIC: Appropriate mood and affect; insight and judgment normal. Data Data Last Documented VS Vital Signs Date Time Temp Pulse Resp B/P (MAP) Pulse Ox O2 Delivery O2 Flow Rate FiO2 05/08/17 15:00 99 Room Air 05/08/17 14:11 98.2 94 15 Orders Orders Electrocardiogram (05/08/17 ) Complete Blood Count With Diff (05/08/17 14:40) Comprehensive Metabolic Panel (05/08/17 14:40) Lipase (05/08/17 14:40) Ct Abd/Pel W Iv Contrast(Rout) (05/08/17 14:40) Iv Access Insert/Monitor (05/08/17 14:40) Ecg Monitoring (05/08/17 14:40) Oximetry (05/08/17 14:40) Sodium Chlor 0.9% 1000 Ml Inj (Ns 1000 M (05/08/17 14:40) Sodium Chloride 0.9% Flush (Ns Flush) (05/08/17 14:45) Ed Urine Pregnancytest Poc (05/08/17 14:40) Magnesium (Mg) (05/08/17 14:40) Creatine Kinase (Cpk) (05/08/17 14:40) Troponin I (05/08/17 14:40) Ketorolac Inj (Toradol Inj) (05/08/17 14:45) Iohexol 350 Inj (Omnipaque 350 Inj) (05/08/17 14:10) Labs Laboratory Tests Test 05/08/17 15:20 White Blood Count 8.4 TH/MM3 Red Blood Count 4.28 MIL/MM3 Hemoglobin 11.8 GM/DL Hematocrit 35.7 % Mean Corpuscular Volume 83.5 FL Mean Corpuscular Hemoglobin 27.6 PG Mean Corpuscular Hemoglobin Concent 33.1 % Red Cell Distribution Width 14.8 % Platelet Count 171 TH/MM3 Mean Platelet Volume 10.8 FL Neutrophils (%) (Auto) 65.8 % Lymphocytes (%) (Auto) 23.0 % Monocytes (%) (Auto) 7.2 % Eosinophils (%) (Auto) 3.6 % Basophils (%) (Auto) 0.4 % Neutrophils # (Auto) 5.5 TH/MM3 Lymphocytes # (Auto) 1.9 TH/MM3 Monocytes # (Auto) 0.6 TH/MM3 Eosinophils # (Auto) 0.3 TH/MM3 Basophils # (Auto) 0.0 TH/MM3 CBC Comment DIFF FINAL Differential Comment Blood Urea Nitrogen 16 MG/DL Creatinine 0.67 MG/DL Random Glucose 88 MG/DL Total Protein 7.2 GM/DL Albumin 3.3 GM/DL Calcium Level 8.5 MG/DL Magnesium Level 2.0 MG/DL Alkaline Phosphatase 85 U/L Aspartate Amino Transf (AST/SGOT) 9 U/L Alanine Aminotransferase (ALT/SGPT) 15 U/L Total Bilirubin 0.2 MG/DL Sodium Level 140 MEQ/L Potassium Level 4.1 MEQ/L Chloride Level 107 MEQ/L Carbon Dioxide Level 27.0 MEQ/L Anion Gap 6 MEQ/L Estimat Glomerular Filtration Rate 132 ML/MIN Total Creatine Kinase 62 U/L Troponin I LESS THAN 0.02 NG/ML Lipase 123 U/L MDM Medical Decision Making Medical Screen Exam Complete: Yes Emergency Medical Condition: Yes Medical Record Reviewed: Yes Interpretation(s) EKG performed in triage reveals normal sinus rhythm Differential Diagnosis Anxiety, dysmenorrhea, electrolyte abnormality, dehydration, PID, ovarian cyst, appendicitis Narrative Course IV established, basic lab work performed, the patient was given IV fluids and Toradol. CT abdomen and pelvis ordered. Lab work imaging studies have been reviewed and found to be unremarkable. She feels improved after the administration of fluids and Toradol. She is stable for discharge and outpatient follow up Procedures EKG Prior to Arrival: Yes Diagnosis Primary Impression: Abdominal cramping Additional Impressions: Atypical chest pain Paresthesias Additional Instructions: Follow-up with primary care physician. Return for any emergent medical conditions. Med/Other Pt SpecificInfo: No Change to Meds Disposition: 01 DISCHARGE HOME Condition: Stable Ac Sherman May 08, 2017 14:45
[2017-05-08 15:00] VITALS: O2SAT 99
[2017-05-08 15:43] LABS: AUTOMATED NEUTROPHIL # 5.5 TH/MM3 (1.8-7.7); BASOPHIL % 0.4 % (0.0-2.0); EOSINOPHIL # 0.3 TH/MM3 (0-0.4); EOSINOPHIL % 3.6 % (0.0-4.0); HEMATOCRIT 35.7 % (35.0-46.0); HEMO FLAGS DIFF FINAL; LYMPHOCYTE # 1.9 TH/MM3 (1.0-4.8); MEAN CELL VOLUME 83.5 FL (80.0-100.0); MEAN CORPUSCULAR HEMOGLOBIN 27.6 PG (27.0-34.0); MEAN CORPUSCULAR HGB CONC 33.1 % (32.0-36.0); MONO % 7.2 % (0.0-8.0); NEUT % 65.8 % (16.0-70.0); PLATELET COUNT 171 TH/MM3 (150-450); RED BLOOD COUNT 4.28 MIL/MM3 (4.00-5.30); RED CELL DISTRIBUTION WIDTH 14.8 % (11.6-17.2); WHITE BLOOD COUNT 8.4 TH/MM3 (4.0-11.0)
[2017-05-08 16:08] LABS: ANION GAP 6 MEQ/L (5-15); AST (GOT) 9 U/L (15-37); BLOOD UREA NITROGEN 16 MG/DL (7-18); CHLORIDE 107 MEQ/L (98-107); GLOMERULAR FILTRATION RATE 132 ML/MIN (>89); POTASSIUM 4.1 MEQ/L (3.5-5.1); SODIUM (NA) 140 MEQ/L (136-145)
[2017-05-08 16:14] LABS: ALKALINE PHOSPHATASE 85 U/L (45-117); ALT (GPT) 15 U/L (10-53); TOTAL BILIRUBIN ADULT 0.2 MG/DL (0.2-1.0)
[2017-05-08 16:16] LABS: CREATINE KINASE 62 U/L (26-192)
--- NOTE | 2017-05-08 17:14 | RADRPT ---
EXAM DATE/TIME: 05/08/2017 16:48 [facility] COMPARISON: No previous studies available for comparison. INDICATIONS : Right sided weakness and cramping. IV CONTRAST: 95 cc Omnipaque 350 (iohexol) IV ORAL CONTRAST: No oral contrast ingested. RADIATION DOSE: 16.45 CTDIvol (mGy) MEDICAL HISTORY : None SURGICAL HISTORY : None. ENCOUNTER: Initial ACUITY: 3 days PAIN SCALE: 6/10 LOCATION: Right lower quadrant TECHNIQUE: Volumetric scanning of the abdomen and pelvis was performed. Using automated exposure control and ad justment of the mA and/or kV according to patient size, radiation dose was kept as low as reasonably achievable to obtain optimal diagnostic quality images. DICOM format image data is available electro nically for review and comparison. FINDINGS: LOWER LUNGS: The visualized lower lungs are clear. LIVER: Homogeneous density without lesion. There is no dilation of the biliary tree. No calcified gallston es. SPLEEN: Normal size without lesion. PANCREAS: Within normal limits. KIDNEYS: Normal in size and shape. There is no mass, stone or hydronephrosis. ADRENAL GLANDS: Within normal limits. VASCULAR: There is no aortic aneurysm. BOWEL/MESENTERY: The stomach, small bowel, and colon demonstrate no acute abnormality. There is no free intraperitone al air or fluid. The appendix is well-visualized, normal. ABDOMINAL WALL: Within normal limits. RETROPERITONEUM: There is no lymphadenopathy. BLADDER: No wall thickening or mass. REPRODUCTIVE: Subcentimeter follicles of both ovaries. No free fluid. INGUINAL: There is no lymphadenopathy or hernia. MUSCULOSKELETAL: Within normal limits for patient age. CONCLUSION: No acute abnormality. Nikolas Hernandez MD on May 08, 2017 at 17:11 Board Certified Radiologist. This report was verified electronically.
[2017-05-08 17:26] VITALS: BP 122/78
--- NOTE | 2017-05-09 14:41 | EKG ---
Date Performed: 05/08/2017 Time Performed: 14:21:46 PTAGE: 22 years EKG: Sinus rhythm NORMAL ECG Compared to prior tracing no significant change PREVIOUS TRACING DOCTOR: Francisco Duke Interpretating Date/Time 05/09/2017 14:35:40
== END 2017-05-08 17:40 | disposition home or self-care (01) ==
LOC: NEPD 14:09
DX: R10.9 Unspecified abdominal pain (principal); R07.89 Other chest pain; R20.9 Unspecified disturbances of skin sensation; J45.909 Unspecified asthma, uncomplicated; Z79.51 Long term (current) use of inhaled steroids; Z79.899 Other long term (current) drug therapy
CPT/HCPCS: 74177; 80053; 82550; 83690; 83735; 84484; 84703; 85025; 93005; 96361; 96374; 99285; J1885; J7030; Q9967